=== PATIENT | male | born 2000 | race Caucasian/White ===

== ENCOUNTER 2020-03-21 02:52 | Emergency (ER) | payer OTHER ==
[2020-03-21 03:07] VITALS: BP 137/92; PULSE 86; TEMP 98.6; BMI 21.9
== END 2020-03-21 04:10 | disposition home or self-care (01) ==
LOC: JER 02:52
DX: R20.2 Paresthesia of skin (principal)
CPT/HCPCS: 93005; 93010; 99283-25

== ENCOUNTER 2020-10-21 13:03 | Emergency (ER) | payer OTHER ==
[2020-10-21 13:11] VITALS: BP 127/82; PULSE 70; TEMP 97.8; BMI 24.5
== END 2020-10-21 14:20 | disposition home or self-care (01) ==
LOC: JER 13:03
DX: K30 Functional dyspepsia (principal)
CPT/HCPCS: 99281-25

== ENCOUNTER 2021-03-26 02:57 | Emergency (ER) | payer OTHER ==
[2021-03-26 03:31] VITALS: BP 110/71; BMI 29.7
[2021-03-26 04:38] VITALS: PULSE 100; TEMP 100.9
[2021-03-29 03:07] LABS: SARS-CoV-2 NAA Detected (Not Detected)
== END 2021-03-26 04:38 | disposition home or self-care (01) ==
LOC: JER 02:57
DX: J11.1 Influenza due to unidentified influenza virus with other respiratory manifestations (principal)
CPT/HCPCS: 87804; 99283-25; C9803; U0003; U0005

== ENCOUNTER 2021-06-11 06:56 | Day surgery (SDC) | payer OTHER ==
[2021-06-11 07:14] VITALS: BMI 26.4
[2021-06-11] MEDS ORDERED: SODIUM CHLORIDE 1,000 ML IV STA (07:28)
[2021-06-11] MEDS ORDERED: ACETAMINOPHEN 1000 MG/100 ML BAG IVPB ONE (07:28)
[2021-06-11] MEDS ORDERED: ACETAMINOPHEN INJECTION 100 ML IVPB ONE (07:46)
[2021-06-11 08:37] LABS: BASO % 0.2 % (0-2.0); EOS % 0.9 % (0-4.5); HEMATOCRIT 44.9 % (35.4-49); HEMOGLOBIN 14.9 GM/dL (11.7-16.9); MCH 28.4 pg (25.7-33.7); MCHC 33.3 g/dl (32.0-35.9); MEAN CELL VOLUME 85.5 fl (80-96); MEAN PLT VOLUME 9.1 fl (7.5-11.1); MONO % 7.1 % (3.8-10.2); NEUT % 80.8 % (42.8-82.8); PLATELET COUNT 286 10^3/uL (134-434); RBC 5.25 M/mm3 (4.00-5.60); RDW 14.1 % (11.9-15.9); WHITE BLOOD COUNT 14.1 K/mm3 (4.0-10.0)
[2021-06-11 09:04] LABS: CALCIUM 9.5 mg/dL (8.5-10.1)
[2021-06-11 09:05] LABS: ALBUMIN 4.1 g/dl (3.4-5.0); BLOOD UREA NITROGEN 12.1 mg/dL (7-18)
[2021-06-11 09:08] LABS: CREATININE 0.8 mg/dL (0.55-1.3)
[2021-06-11 09:09] LABS: BILIRUBIN,TOTAL 0.7 mg/dL (0.2-1)
[2021-06-11] MEDS ORDERED: PIPERACILLIN/TAZOB 3.375 GM 3.375 GM in DEXTROSE 5%-WATER - 50 ML IVPB ONE (09:52)
[2021-06-11] MEDS ORDERED: ACETAMINOPHEN 1000 MG/100 ML BAG IVPB PRN ×2 (10:21→13:41)
[2021-06-11] MEDS ORDERED: PIPERACILLIN/TAZOB 3.375 GM 3.375 GM/50 ML BAG IVPB ONE (10:21)
[2021-06-11] MEDS ORDERED: BUPIVACAINE HCL/PF 0.5% (5MG/ML) 10 ML VIAL ONE (11:07)
[2021-06-11 11:44] LABS: PH,URINE 8.5 (5.0-8.0); URINE APPEARANCE CLEAR; URINE BILIRUBIN NEGATIVE (NEGATIVE); URINE COLOR YELLOW; URINE GLUCOSE (UA) NEGATIVE (NEGATIVE); URINE KETONE NEGATIVE (NEGATIVE); URINE LEUK ESTERASE NEGATIVE (NEGATIVE); URINE NITRITE NEGATIVE (NEGATIVE); URINE PROTEIN NEGATIVE (NEGATIVE); URINE UROBILINOGEN 0.2 mg/dL (0.2-1.0)
[2021-06-11 11:56] LABS: ACTIVATED PTT 30.2 SECONDS (25.2-36.5); INR 1.08 (0.83-1.09); PROTHROMBIN TIME (PATIENT) 12.4 SEC (9.7-13.0)
[2021-06-11] MEDS ORDERED: LIDOCAINE HCL/PF 2% SDV 5ML VIAL ONE (11:58)
[2021-06-11] MEDS ORDERED: PROPOFOL 20 ML ONE (11:58)
[2021-06-11] MEDS ORDERED: ROCURONIUM BROMIDE 50 MG/5 ML SYRINGE ONE (11:58)
[2021-06-11] MEDS ORDERED: MIDAZOLAM HCL 2 MG/2 ML SINGLE DOSE VIAL ONE (11:58)
[2021-06-11] MEDS ORDERED: ONDANSETRON 4 MG/2 ML VIAL IVPUSH PRN ×3 (12:06→13:41)
[2021-06-11] MEDS ORDERED: PROMETHAZINE HCL 25 MG/1 ML VIAL IVPUSH PRN ×3 (12:06→13:41)
[2021-06-11] MEDS ORDERED: LACTATED RINGERS SOLUTION 1,000 ML IV SCH ×2 (12:15→13:30)
[2021-06-11] MEDS ORDERED: LIDOCAINE HCL 1%, 10 MG/ML (20ML VIAL) NR ONE ×2 (12:43→12:56)
[2021-06-11] MEDS ORDERED: BUPIVACAINE HCL/PF 0.5% (5MG/ML) 10 ML VIAL IJ ONE ×2 (12:44→12:56)
[2021-06-11] MEDS ORDERED: NEOSTIGMINE METHYLSULFATE 0.5 MG/ML - 10 ML MDV ONE (13:02)
[2021-06-11] MEDS: LACTATED RINGERS SOLUTION 1,000 ML IV SCH ×2 (14:00→20:45)
[2021-06-11] MEDS: KETOROLAC TROMETHAMINE 15 MG/ML VIAL IVPUSH SCH (15:43)
[2021-06-12] MEDS: KETOROLAC TROMETHAMINE 15 MG/ML VIAL IVPUSH SCH ×4 (01:01→16:45)
[2021-06-12 06:31] VITALS: TEMP 98.3
[2021-06-12 08:38] LABS: BASO % 0.1 % (0-2.0); EOS % 0.4 % (0-4.5); HEMATOCRIT 40.2 % (35.4-49); HEMOGLOBIN 13.8 GM/dL (11.7-16.9); LYMPH % 19.8 % (8-40); MCH 29.1 pg (25.7-33.7); MCHC 34.4 g/dl (32.0-35.9); MEAN CELL VOLUME 84.7 fl (80-96); MEAN PLT VOLUME 8.6 fl (7.5-11.1); MONO % 8.9 % (3.8-10.2); NEUT % 70.8 % (42.8-82.8); PLATELET COUNT 247 10^3/uL (134-434); RBC 4.75 M/mm3 (4.00-5.60); RDW 13.6 % (11.9-15.9); WHITE BLOOD COUNT 9.4 K/mm3 (4.0-10.0)
[2021-06-12 09:09] LABS: ALBUMIN 3.4 g/dl (3.4-5.0); CALCIUM 9.2 mg/dL (8.5-10.1); MAGNESIUM 2.2 mg/dL (1.8-2.4)
[2021-06-12 09:11] LABS: CREATININE 0.7 mg/dL (0.55-1.3); PHOSPHOROUS 3.3 mg/dL (2.5-4.9)
[2021-06-12 09:13] LABS: BILIRUBIN,TOTAL 0.7 mg/dL (0.2-1)
[2021-06-12 09:14] LABS: BLOOD UREA NITROGEN 7.9 mg/dL (7-18)
[2021-06-12 15:51] VITALS: BP 117/63; PULSE 644
== END 2021-06-12 18:15 | disposition home or self-care (01) ==
LOC: JER 06:56 → JERBED 09:40 → UNDOADMIN 09:40 → JASUSAT 11:49 → SUATTDRO 11:49 → J8W 15:14 → JASUSAT 06-12 18:15
PROVIDERS: ATTEND Nurse Practitioner Family
PROC: 0DTJ4ZZ Resection of Appendix, Percutaneous Endoscopic Approach (ICD-10-PCS; principal; 2021-06-11 11:00)
DX: K35.80 Unspecified acute appendicitis (principal)
CPT/HCPCS: 36415; 74177-TC; 80053; 81003; 83690; 83735; 84100; 85025; 85610; 85730; 86850; 86900; 86901; 88304-TC; 93005; 93010; 94760; 99285-25; C9803-CS; Q9967; U0003; U0005